=== PATIENT | female | born 1980 ===

== ENCOUNTER 2018-04-16 12:57 | Inpatient (IN) | payer MEDICAID ==
[2018-04-16 14:36] LABS: BASO % 0.3 % (0.0-2.0); EOS % 0.5 % (0.0-4.0); HEMOGLOBIN 12.9 g/dL (12.0-16.0); LYMPH # 2.1 K/uL (1.0-4.3); LYMPH % 23.3 % (20.0-40.0); MEAN CELL VOLUME 91.6 fl (81.0-99.0); MEAN CORPUSCULAR HEMOGLOBIN 31.7 pg (27.0-31.0); MEAN CORPUSCULAR HGB CONC 34.6 g/dL (33.0-37.0); MEAN PLATELET VOLUME 8.8 fl (7.2-11.7); MONO # 0.6 K/uL (0.0-0.8); MONO % 6.9 % (0.0-10.0); NEUT # 6.1 K/uL (1.8-7.0); NRBC % 0.1 % (0.0-0.0); RBC 4.05 Mil/uL (3.80-5.20); RED CELL DISTRIBUTION WIDTH 13.5 % (11.5-14.5); WHITE BLOOD COUNT 8.9 K/uL (4.8-10.8)
--- NOTE | 2018-04-16 14:40 | ED PDOC ---
HPI: Psych/Substance Abuse Time Seen by Provider: 04/16/18 13:30 Chief Complaint (Nursing): Psychiatric Evaluation Chief Complaint (Provider): psychiatric evaluation History Per: Patient History/Exam Limitations: no limitations Onset/Duration Of Symptoms: Days Current Symptoms Are (Timing): Still Present Additional Complaint(s): 38 year old female with a history of schizophrenia presents to the ED for a psychiatric evaluation. Patient states she was advised by her PMD for crisis evaluation. Patient is symptomatic. Her statements are rambling and disconnected. She has difficulty standing still and keeps moving. Also states she is sick and visited the ED a few days ago. Denies suicidal ideation and homicidal ideation. PMD: Dr. Sherri Kaiser Past Medical History Reviewed: Historical Data, Nursing Documentation, Vital Signs Vital Signs: Last Vital Signs Temp 98 F 04/16/18 13:10 Pulse 74 04/16/18 13:10 Resp 20 04/16/18 13:10 BP 127/78 04/16/18 13:10 Pulse Ox 98 04/16/18 13:10 - Medical History PMH: Schizophrenia - Family History Family History: States: Unknown Family Hx - Home Medications Home Medications: Ambulatory Orders Medication Instructions Recorded Escitalopram [Lexapro] 20 mg PO DAILY 04/16/18 FLUoxetine [Prozac] 10 mg PO DAILY 04/16/18 LORazepam [Ativan] 1 mg PO Q12 PRN 04/16/18 Olanzapine [Zyprexa] 15 mg PO HS 04/16/18 - Allergies Allergies/Adverse Reactions: Allergies Allergy/AdvReac Type Severity Reaction Status Date / Time No Known Allergies Allergy Verified 04/16/18 12:58 Review of Systems ROS Statement: Except As Marked, All Systems Reviewed And Found Negative Psych: Negative for: Suicidal ideation (homicidal ideation) Physical Exam - Reviewed Nursing Documentation Reviewed: Yes Vital Signs Reviewed: Yes - Physical Exam Appears: Positive for: Non-toxic, No Acute Distress Head Exam: Positive for: ATRAUMATIC, NORMAL INSPECTION, NORMOCEPHALIC Skin: Positive for: Normal Color, Warm, Dry Neurologic/Psych: Positive for: Alert, Oriented (x3). Negative for: Motor/ Sensory Deficits - Laboratory Results Result Diagrams: 04/16/18 14:25 04/16/18 14:25 Urine POC: Positive - ECG ECG: Positive for: Interpreted By Me ECG Rhythm: Positive for: Normal QRS, Normal ST Segment, Sinus Rhythm O2 Sat by Pulse Oximetry: 98 (RA) Pulse Ox Interpretation: Normal Medical Decision Making Medical Decision Making: Time: 1407 Initial impression: psychiatric evaluation Initial plan: --Acetaminophen --Alcohol Serum --CMP --Drug Screen, Urine --Salicylate --Crisis Evaluation --CBC w/ Differential --Urinalysis Pt admitted for schizophrenia underservice of Dr Rosado Scribe Attestation: Documented by Kwasi Ennis, acting as a scribe for Jose Marcano PA-C. Provider Scribe Attestation: All medical record entries made by the Scribe were at my direction and personally dictated by me. I have reviewed the chart and agree that the record accurately reflects my personal performance of the history, physical exam, medical decision making, and the department course for this patient. I have also personally directed, reviewed, and agree with the discharge instructions and disposition. Disposition - Clinical Impression Clinical Impression: as incidental finding, Schizophrenia - Patient ED Disposition Is Patient to be Admitted: Yes Discussed With : Dontrell Rosado Doctor Will See Patient In The: Hospital Counseled Patient/Family Regarding: Diagnosis - Disposition Disposition Time: 16:28 Condition: STABLE Instructions: Schizophrenia, Medications and Forms: Mirametrix (Yakut) - Pt Status Changed To: Hospital Disposition Of: Inpatient - Admit Certification Admit to Inpatient:: After my assessment, the patient will require hospitalization for at least two midnights. This is because of the severity of symptoms shown, intensity of services needed, and/or the medical risk in this patient being treated as an outpatient.
[2018-04-16 14:41] LABS: ALB/GLOB RATIO 1.4 (1.0-2.1); ALBUMIN 4.2 g/dL (3.5-5.0); ALT/SGPT 28 U/L (9-52); AST/SGOT 27 U/L (14-36); BLOOD UREA NITROGEN 7 mg/dl (7-17); CALCIUM 9.5 mg/dL (8.4-10.2); GFR AFRICAN-AMERICAN > 60; GFR NON-AFRICAN AMERICAN > 60
[2018-04-16 14:44] LABS: ACETAMINOPHEN < 10.0 ug/ml (10.0-30.0); SALICYLATE < 1.0 mg/dl
[2018-04-16 15:44] LABS: BARBITURATES, UR NEGATIVE (NEGATIVE); BENZODIAZEPINES, UR NEGATIVE (NEGATIVE); OPIATES, UR NEGATIVE (NEGATIVE); PHENCYCLIDINE, UR NEGATIVE (NEGATIVE)
[2018-04-16 15:57] LABS: URINE COLOR YELLOW (YELLOW)
[2018-04-16 15:58] LABS: URINE BILIRUBIN NEGATIVE (NEGATIVE); URINE BLOOD NEGATIVE (NEGATIVE); URINE CLARITY SLIGHT-CLOUDY (Clear); URINE GLUCOSE (UA) NEGATIVE (Normal); URINE PROTEIN NEGATIVE (NEGATIVE); URINE UROBILINOGEN 0.2 mg/dL (0.2-1.0)
[2018-04-16 15:59] LABS: SQUAMOUS EPITHIAL 1 /hpf (0-5); WBC CLUMPS RARE /hpf
[2018-04-16 16:01] LABS: URINE LEUKOCYTE ESTERASE NEGATIVE Leu/uL (Negative)
[2018-04-16] MEDS ORDERED: DiphenhydrAMINE 50 mg/ml Inj IM STA (16:17)
[2018-04-16] MEDS ORDERED: DiphenhydrAMINE 50 mg/ml Inj ONE (16:23)
[2018-04-16 21:04] VITALS: RESP 18; O2SAT 100
--- NOTE | 2018-04-16 22:26 | PCM.BM ---
Treatment Plan Problems - Problems identified on initial assessmt Altered Thought Process Date Initiated: 04/16/18 Time Initiated: 22:25 Assessment reference: NA Status: Active Treatment assets and liabiliti Patient Assests: ADL independent, negotiates basic needs, cognitively intact Patient Liabilities: poor support system, relationship conflicts - Milieu Protocol Maintain good personal hygiene: daily Encourage regular showers, daily Remind patient to perform daily oral care, daily Assist patient to perform ADL's Conduct patient checks and document Observation sheet: Q15 minutes Maintain personal safety: every shift Educate patient to report safety concerns to staff, every shift Monitor environment for contraband/sharps Medication safety: Monitor for expected outcome, potential side effects: every shift, Assess barriers to learning: every shift, Assess readiness for medication education: every shift
--- NOTE | 2018-04-16 23:51 | PCM.BM ---
<Melvin Bryant P - Last Filed: 04/16/18 23:50> Treatment Plan Problems - Problems identified on initial assessmt Auditory Hallucinations Date Initiated: 04/16/18 Time Initiated: 23:50 Assessment reference: NA Status: Active Visual Hallucinations Date Initiated: 04/16/18 Time Initiated: 23:50 Assessment reference: NA Status: Active Treatment assets and liabiliti Patient Assests: ADL independent, negotiates basic needs, cognitively intact Patient Liabilities: relationship conflicts, other - Milieu Protocol Maintain good personal hygiene: daily Encourage regular showers, daily Remind patient to perform daily oral care, daily Assist patient to perform ADL's Conduct patient checks and document Observation sheet: Q15 minutes Maintain personal safety: every shift Educate patient to report safety concerns to staff, every shift Monitor environment for contraband/sharps Medication safety: Monitor for expected outcome, potential side effects: every shift, Assess barriers to learning: every shift, Assess readiness for medication education: every shift <Joesph Ellis J - Last Filed: 04/18/18 16:32> Treatment Plan Problems - Problems identified on initial assessmt Auditory Hallucinations Date Initiated: 04/16/18 Time Initiated: 23:50 Assessment reference: NA Status: Active Visual Hallucinations Date Initiated: 04/16/18 Time Initiated: 23:50 Assessment reference: NA Status: Active Family Contact Family involvement: Family/SO is involved Family contact: Patient agrees to contact, Family has been contacted by patient , Telephone contact initiated by staff Family contact name: Kendall - Son Family contacted how many times per week?: 2 Family contact comment: As per pt's son, Kendall, he did not notice any change in pt's behavior at presnet time. Pt has only been home from boarding school in [place] for two weeks and reported that pt tends to be disorganized and tangential at baseline. Kendall does worry that his mother does not take her medications when he is away from school, but reported that she has been mostly compliant since he has been home. Kendall denied pt doing anything that concerned him recently and he was not aware that pt had decompensated. - Goals for Treatment Patient goals for treatment: Pt denied needing continued hospitalization and was discharged focus. Pt feels that she is being forced to stay in the hospital against her will and felt bullied into signing in. Pt feels that hospital staff lacks empathy for her and her sitaution as she is concerned that he daughter will not be cared for while she is hospitalized. Discharge/Continuing Care - Education Needs Education Needs: Family Medication, Family Diagnosis/Disease Process, Family Coping Skills, Family Aftercare Safety Plan, Patient Medication, Patient Diagnosis/Disease Process, Patient Coping Skills, Patient Aftercare Safety Plan - Discharge Discharge Criteria: Tolerates medication w/o severe side effects, Free of Homicidal thoughts, Free of paranoid thoughts, Ability to care for self, Reduction of target symptoms Discharge to:: Home, With Family - Treatment Team Participation Discussed with Family/SO: Yes <Cynthia Smith - Last Filed: 04/21/18 12:22> Treatment Plan Problems - Problems identified on initial assessmt Visual Hallucinations Assessment reference: Treatment assets and liabiliti Patient Assests: adapts well, resourceful, self-reliant, ADL independent, physically healthy Patient Liabilities: live alone (pt. resides with 10 year old daughter ; limited social supports ; poor family supports), poor support system, other ( inconsistant adherence with OPS ; hx of poor judgment/insight/impulse control when decompensated) Discharge/Continuing Care - Treatment Team Participation Patient/Family/SO Statement: 04/21/18 12:23 Pipe Insulator attended tx team this morning to discuss progress on 3NP and tx goals. Pt. continues to refuse medications on 3NP despite encouragement and recommendations from staff. Pt. has a 48 hour notice in affect and is adamant about not rescinding. Pt. has been screened and not accepted for involuntary commitment. However, pt. continues to minimize precursors to hospitalization and present with poor insight into illness and need for tx. Pt. presents with limited focused as evidence by need to have information repeated several times and difficulties understanding information provided. Pt. does deny SI/HI/AH/VH. Pt. presents as labile and somewhat internally preoccupied and guarded. Pt. easily irritable when discussing tx recommendations. Pt. expressed being unsure whether she wants to terminate current , stating I have a lot to figure out and do and need to leave and be with my children. Tx team emphasized importance of compliance with medication management to ensure safety in the community, reduce risk of future hospitalizations and improve insight/ judgment/impulse control. Pt. minimally receptive to feedback and remains discharge focused. Pt demanding discharge, stating that she can follow-up with outpatient providers independently. Pt. to be rescreened for involuntary hospitalization based on current refusal of medications, lability, impaired insight/judgment. Was Patient/Family/SO present at Treatment Team Meeting: Yes <Dontrell Rosado - Last Filed: 04/22/18 09:40> Treatment Plan Problems - Problems identified on initial assessmt Auditory Hallucinations Date Initiated: 04/16/18 Time Initiated: 23:50 Assessment reference: NA Status: Active Visual Hallucinations Date Initiated: 04/16/18 Time Initiated: 23:50 Assessment reference: SW Status: Active Altered Thought Process Date Initiated: 04/19/18 Time Initiated: 18:07 Assessment reference: NA Status: Active - Diagnosis (1) Depression Status: Acute Interventions: psychotherapy, pharmacotherapy 04/22/18 09:40
[2018-04-17 07:30] LABS: T4 9.7 ug/dl (5.5-11.0)
[2018-04-17] MEDS ORDERED: DiphenhydrAMINE 50 mg/ml Inj IM PRN (13:11)
[2018-04-17] MEDS ORDERED: Venlafaxine 37.5 mg ER Cap PO SCH (13:21)
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
--- NOTE | 2018-04-17 17:22 | CP.PCM.CON ---
History of Present Illness - History of Present Illness History of Present Illness: 38 yo female with history of psychoaffective DO admitted to psyche unit because of worsening depression after learning she is Review of Systems - Review of Systems All systems: reviewed and no additional remarkable complaints except (aside from those mentioned above, 12 point system review were negative by me) Past Patient History - Past Social History Smoking Status: Never Smoked Chewing Tobacco Use: No Cigar Use: No Alcohol: None Drugs: Denies - CARDIAC Hx Cardiac Disorders: No Hx Hypertension: No - PULMONARY Hx Respiratory Disorders: No Hx Tuberculosis: No - NEUROLOGICAL Hx Neurological Disorder: No HX Cerebrovascular Accident: No Hx Seizures: No - HEENT Hx HEENT Problems: No - RENAL Hx Chronic Kidney Disease: No - ENDOCRINE/METABOLIC Hx Endocrine Disorders: No - HEMATOLOGICAL/ONCOLOGICAL Hx Blood Disorders: No Hx Cancer: No Hx Human Immunodeficiency Virus (HIV): No - INTEGUMENTARY Hx Dermatological Problems: No - MUSCULOSKELETAL/RHEUMATOLOGICAL Hx Musculoskeletal Disorders: No - GASTROINTESTINAL Hx Gastrointestinal Disorders: No - GENITOURINARY/GYNECOLOGICAL Hx Genitourinary Disorders: No Hx Sexually Transmitted Disorders: No - PSYCHIATRIC Hx Schizophrenia: Yes Hx Substance Use: No (denies) - SURGICAL HISTORY Hx Surgeries: No - ANESTHESIA Hx Anesthesia: No Meds Allergies/Adverse Reactions: Allergies Allergy/AdvReac Type Severity Reaction Status Date / Time No Known Allergies Allergy Verified 04/16/18 12:58 - Medications Medications: Current Medications Acetaminophen (Tylenol 325mg Tab) 325 mg PO Q6 PRN PRN Reason: Pain, moderate (4-7) Last Admin: 04/17/18 16:23 Dose: 325 mg Diphenhydramine HCl (Benadryl) 50 mg IM Q6 PRN PRN Reason: Extrapyramidal S/S Unable PO Diphenhydramine HCl (Benadryl) 50 mg PO Q6 PRN PRN Reason: Extrapyramidal Symptoms Diphenhydramine HCl (Benadryl) 50 mg PO HS PRN PRN Reason: Sleep Diphenhydramine HCl (Benadryl) 50 mg IM Q6 PRN PRN Reason: Extrapyramidal S/S Unable PO Haloperidol (Haldol) 5 mg PO Q4 PRN PRN Reason: Agitation Haloperidol (Haldol) 2 mg PO TID JASVIR Last Admin: 04/17/18 16:27 Dose: 2 mg Haloperidol Lactate (Haldol) 5 mg IM Q4 PRN PRN Reason: Agitation, Unable to Take PO Physical Exam - Constitutional Appears: No Acute Distress - Head Exam Head Exam: ATRAUMATIC - Eye Exam Eye Exam: absent: Scleral icterus - ENT Exam ENT Exam: Mucous Membranes Moist - Neck Exam Neck exam: Negative for: Meningismus - Respiratory Exam Respiratory Exam: absent: Rales, Rhonchi, Wheezes, Respiratory Distress - Cardiovascular Exam Cardiovascular Exam: REGULAR RHYTHM, +S1, +S2 - GI/Abdominal Exam GI & Abdominal Exam: Soft. absent: Tenderness - Rectal Exam Rectal Exam: Deferred - Extremities Exam Extremities exam: Negative for: calf tenderness, pedal edema - Back Exam Back exam: NORMAL INSPECTION - Neurological Exam Neurological exam: Alert, Oriented x3 - Psychiatric Exam Psychiatric exam: Normal Affect - Skin Skin Exam: Dry, Intact Results - Vital Signs Recent Vital Signs: Last Vital Signs Temp 98.3 F 04/17/18 16:23 Pulse 82 04/17/18 09:00 Resp 18 04/17/18 09:00 BP 102/61 04/17/18 09:00 Pulse Ox 100 04/16/18 21:02 - Labs Result Diagrams: 04/16/18 14:25 04/16/18 14:25 Labs: Laboratory Results - last 24 hr 04/17/18 04/17/18 06:40 06:40 Hemoglobin A1c 5.3 Triglycerides 64 Cholesterol 171 LDL Cholesterol Direct 73 HDL Cholesterol 55 Thyroxine (T4) 9.70 TSH 3rd Generation 0.76 Assessment & Plan (1) Depression Status: Acute Comment: psyche is managing (2) as incidental finding Status: Acute Comment: OB-NOTCHED BLADE LOADER on consult. patient is planning to terminate
--- NOTE | 2018-04-18 11:14 | CARD ---
APPROVED REPORT EKG Measurement Heart [id number] <Conclusion> Normal sinus rhythm Normal ECG
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
--- NOTE | 2018-04-18 20:40 | CP.PCM.CON ---
<Cristian Ahn - Last Filed: 04/18/18 20:40> History of Present Illness - History of Present Illness History of Present Illness: 38 yo F EGA 8.2 based on LMP 02/19/2018 was admitted for schizoaffective disorder. She denies: vaginal bleeding, contractions, loss of fluid, or movement. ROS: Denies: dizziness, blurred vision, chest pain, shortness of breath, nausea , vomiting, or dysuria OB: She denies establishing care. She reports scheduling an appointment on 04/29/2018 in [facility] for termination of . ObHX: 2000 Male FT denies complications; 2007 Female FT denies complications Gyne hx: Menses began at age 11, monthly 28 day cycles, lasting 3 days, requiring 5 pads per day Pmhx: Schizophrenia dx in DR at age 7 Famhx: none Soc: Denies smoking, alcohol, illicit drugs or hx of STIs Surg: none NKDA Meds: Lexapro, Ativan, Resperidol Gen: AAOx3, no acute distress Cardiac: S1S2 no murmurs Lungs: CTA bilaterally, no wheezing Abdo: Soft nontender, active bowel sounds, fundus not palpable CVA: non tender Calves: non tender Ambulates without difficulty, no abnormal gait observed 38 yo F IUP EGA 8.2 based on LMP -Continue management per Psychiatry -No care; no symptoms of VB, LOF, CTX, FM -Recommend starting vitamins -Recommend Transvaginal Ultrasound in the AM for dating -Pt states desire for termination of and reports scheduled on 2017 -ER precautions reviewed with patient -Cleared by OB for discharge Case d/w Dr. Marco A Ahn MD PGY1 Past Patient History - Past Social History Smoking Status: Never Smoked Chewing Tobacco Use: No Cigar Use: No Alcohol: None Drugs: Denies - CARDIAC Hx Cardiac Disorders: No Hx Hypertension: No - PULMONARY Hx Respiratory Disorders: No Hx Tuberculosis: No - NEUROLOGICAL Hx Neurological Disorder: No HX Cerebrovascular Accident: No Hx Seizures: No - HEENT Hx HEENT Problems: No - RENAL Hx Chronic Kidney Disease: No - ENDOCRINE/METABOLIC Hx Endocrine Disorders: No - HEMATOLOGICAL/ONCOLOGICAL Hx Blood Disorders: No Hx Cancer: No Hx Human Immunodeficiency Virus (HIV): No - INTEGUMENTARY Hx Dermatological Problems: No - MUSCULOSKELETAL/RHEUMATOLOGICAL Hx Musculoskeletal Disorders: No - GASTROINTESTINAL Hx Gastrointestinal Disorders: No - GENITOURINARY/GYNECOLOGICAL Hx Genitourinary Disorders: No Hx Sexually Transmitted Disorders: No - PSYCHIATRIC Hx Schizophrenia: Yes Hx Substance Use: No (denies) - SURGICAL HISTORY Hx Surgeries: No - ANESTHESIA Hx Anesthesia: No Meds Allergies/Adverse Reactions: Allergies Allergy/AdvReac Type Severity Reaction Status Date / Time No Known Allergies Allergy Verified 04/16/18 12:58 - Medications Medications: Current Medications Acetaminophen (Tylenol 325mg Tab) 325 mg PO Q6 PRN PRN Reason: Pain, moderate (4-7) Last Admin: 04/17/18 21:48 Dose: 325 mg Diphenhydramine HCl (Benadryl) 50 mg IM Q6 PRN PRN Reason: Extrapyramidal S/S Unable PO Diphenhydramine HCl (Benadryl) 50 mg PO Q6 PRN PRN Reason: Extrapyramidal Symptoms Diphenhydramine HCl (Benadryl) 50 mg PO HS PRN PRN Reason: Sleep Diphenhydramine HCl (Benadryl) 50 mg IM Q6 PRN PRN Reason: Extrapyramidal S/S Unable PO Haloperidol (Haldol) 5 mg PO Q4 PRN PRN Reason: Agitation Haloperidol (Haldol) 2 mg PO TID JASVIR Last Admin: 04/18/18 16:43 Dose: 2 mg Haloperidol Lactate (Haldol) 5 mg IM Q4 PRN PRN Reason: Agitation, Unable to Take PO Results - Vital Signs Recent Vital Signs: Last Vital Signs Temp 97.2 F L 04/18/18 17:00 Pulse 85 04/18/18 17:00 Resp 18 04/18/18 17:00 BP 129/66 04/18/18 17:00 Pulse Ox 100 04/16/18 21:02 - Labs Result Diagrams: 04/16/18 14:25 04/16/18 14:25 Labs: Laboratory Results - last 24 hr 04/17/18 06:40 RPR Nonreactive <Edmond Strickland - Last Filed: 04/19/18 08:18> Meds - Medications Medications: Current Medications Acetaminophen (Tylenol 325mg Tab) 325 mg PO Q6 PRN PRN Reason: Pain, moderate (4-7) Last Admin: 04/17/18 21:48 Dose: 325 mg Diphenhydramine HCl (Benadryl) 50 mg IM Q6 PRN PRN Reason: Extrapyramidal S/S Unable PO Diphenhydramine HCl (Benadryl) 50 mg PO Q6 PRN PRN Reason: Extrapyramidal Symptoms Diphenhydramine HCl (Benadryl) 50 mg PO HS PRN PRN Reason: Sleep Diphenhydramine HCl (Benadryl) 50 mg IM Q6 PRN PRN Reason: Extrapyramidal S/S Unable PO Haloperidol (Haldol) 5 mg PO Q4 PRN PRN Reason: Agitation Haloperidol (Haldol) 2 mg PO TID JASVIR Last Admin: 04/18/18 16:43 Dose: 2 mg Haloperidol Lactate (Haldol) 5 mg IM Q4 PRN PRN Reason: Agitation, Unable to Take PO Multivit/Folic Acid/Iron () 1 tab PO DAILY JASVIR Results - Vital Signs Recent Vital Signs: Last Vital Signs Temp 97.2 F L 04/18/18 17:00 Pulse 85 04/18/18 17:00 Resp 18 04/18/18 17:00 BP 129/66 04/18/18 17:00 Pulse Ox 100 04/16/18 21:02 - Labs Result Diagrams: 04/16/18 14:25 04/16/18 14:25 Assessment & Plan - Assessment and Plan (Free Text) Plan: OB Hospitalist on-call...On rounds, i saw this patient with Dr Ahn PGY1. She does not want anything done. Offered sono for dating and vitamins. She declined this morning. She plans on TOP (termination of preg) - OB service signs off...re-consult of needed MAHNDO
[2018-04-19] MEDS: Prenatal Multivit/Folic Acid/Iron Tab PO SCH (09:06)
[2018-04-19] MEDS: DiphenhydrAMINE 50 mg/ml Inj IM PRN ×2 (09:35→18:45)
--- NOTE | 2018-04-19 09:51 | PCM.PYCHPN ---
Psychiatric Progress Note - Psychiatric Progress Note Patient seen today, length of contact: Patient evaluated, case discussed w/ team , chart reviewed Patient Chief Complaint: "I want to leave." Problems Identified/Issues Discussed: Patient is requesting to leave the hospital and signed a 48 hour letter. She had oromandibular dystonia and was given IM Benadryl. She states she does not want to continue taking Haldol due to this reaction. She is linear, coherent and goal oriented on conversation. She denies acute concerns about aliens and states that she watches shows about aliens on TV, but denies ideation that aliens are coming to harm anyone. She denies acute AH/VH/SI/HI. We discussed starting treatment w/ a different antipsychotic such as Abilify, but she is not certain if she wants to take any other medications. Medication Change: Yes (Stop Haldol) Medical Record Reviewed: Yes Consults ordered or reviewed: Medicine consult, OB consult Mental Status Examination - Cognitive Function Orientation: Person, Place, Situation, Time Memory: Intact Attention: WNL Concentration: WNL Association: WNL Fund of Knowledge: WN Decription of patient's judgement and insights: Poor I/J - Mood Mood: Neutral - Affect Affect: Broad - Speech Speech: Appropriate - Formal Thought Process Formal Thought Process: Delusions, Loosening of associations Psychotic Thoughts and Behaviors: +Patient seems less delusional about aliens; denies acute AH/VH/paranoia - Suicidal Ideation Suicidal Ideation: No - Homicidal Ideation Homicidal Ideation: No Goal/Treatment Plan - Goal/Treatment Plan Need for Continued Stay: Remain at risks for inpatient hospitalization, Discharge may exacerbated symptoms, Severe functional impairment Progress Toward Problem(s) and Goals/Treatment Plan: Schizoaffective Disorder -Stop Haldol, patient is not agreeable to taking it after having a dystonic reaction; will treat with Benadryl and Cogentin as needed -Screen for involuntary admission -Continue to discuss other medications with the patient, such as treatment with Abilify -OB consult appreciated; patient intends to terminate the -Individual and group therapy -Psychoeducation -SW to call DCP&P re: safety of her children -Medicine consult -Disposition planning Estimated Date of D/C: 04/21/18
--- NOTE | 2018-04-19 18:05 | PCM.BM ---
Treatment Plan Problems - Problems identified on initial assessmt Altered Thought Process Date Initiated: 04/19/18 Time Initiated: 18:07 Assessment reference: NA Status: Active Auditory Hallucinations Date Initiated: 04/16/18 Time Initiated: 23:50 Assessment reference: NA Status: Active Visual Hallucinations Date Initiated: 04/16/18 Time Initiated: 23:50 Assessment reference: NA Status: Active Treatment assets and liabiliti Patient Assests: ADL independent, negotiates basic needs, cognitively intact Patient Liabilities: relationship conflicts, other - Milieu Protocol Maintain good personal hygiene: daily Encourage regular showers, daily Remind patient to perform daily oral care, daily Assist patient to perform ADL's Conduct patient checks and document Observation sheet: Q15 minutes Maintain personal safety: every shift Educate patient to report safety concerns to staff, every shift Monitor environment for contraband/sharps Medication safety: Monitor for expected outcome, potential side effects: every shift, Assess barriers to learning: every shift, Assess readiness for medication education: every shift Milieu Narrative: Schizoaffective Disorder -Stop Haldol, patient is not agreeable to taking it after having a dystonic reaction; will treat with Benadryl and Cogentin as needed -Screen for involuntary admission -Continue to discuss other medications with the patient, such as treatment with Abilify -OB consult appreciated; patient intends to terminate the -Individual and group therapy -Psychoeducation -SW to call DCP&P re: safety of her children -Medicine consult -Disposition planning Family Contact Family involvement: Family/SO is involved Family contact: Patient agrees to contact, Family has been contacted by patient , Telephone contact initiated by staff Family contact name: Kendall - Son Family contacted how many times per week?: 2 Family contact comment: As per pt's son, Kendall, he did not notice any change in pt's behavior at presnet time. Pt has only been home from boarding school in [place] for two weeks and reported that pt tends to be disorganized and tangential at baseline. Kendall does worry that his mother does not take her medications when he is away from school, but reported that she has been mostly compliant since he has been home. Kendall denied pt doing anything that concerned him recently and he was not aware that pt had decompensated. - Goals for Treatment Patient goals for treatment: Pt denied needing continued hospitalization and was discharged focus. Pt feels that she is being forced to stay in the hospital against her will and felt bullied into signing in. Pt feels that hospital staff lacks empathy for her and her sitaution as she is concerned that he daughter will not be cared for while she is hospitalized. Discharge/Continuing Care - Education Needs Education Needs: Family Medication, Family Diagnosis/Disease Process, Family Coping Skills, Family Aftercare Safety Plan, Patient Medication, Patient Diagnosis/Disease Process, Patient Coping Skills, Patient Aftercare Safety Plan - Discharge Discharge Criteria: Tolerates medication w/o severe side effects, Free of Homicidal thoughts, Free of paranoid thoughts, Ability to care for self, Reduction of target symptoms Discharge to:: Home, With Family - Treatment Team Participation Patient/Family/SO Statement: Schizoaffective Disorder -Stop Haldol, patient is not agreeable to taking it after having a dystonic reaction; will treat with Benadryl and Cogentin as needed -Screen for involuntary admission -Continue to discuss other medications with the patient, such as treatment with Abilify -OB consult appreciated; patient intends to terminate the -Individual and group therapy -Psychoeducation -SW to call DCP&P re: safety of her children -Medicine consult -Disposition planning Discussed with Family/SO: Yes
--- NOTE | 2018-04-20 12:08 | PCM.PYCHPN ---
Psychiatric Progress Note - Psychiatric Progress Note Patient seen today, length of contact: Patient evaluated, case discussed w/ team , chart reviewed Patient Chief Complaint: "I want to leave." Problems Identified/Issues Discussed: Patient was screened for involuntary psychiatric admission and was found to not meet criteria for involuntary commitment. She continues to want to leave. Boilermaker Helper informed patient she will be discharged tomorrow and that she would benefit from continued outpatient psychiatric treatment. She is currently refusing all psychiatric medications. She will continue follow-up with her primary psychiatrist, Dr. Kaiser. She is linear and organized on conversation w /o pressured speech. Denies AH/VH/paranoia/delusions. Medication Change: Yes (PRN Benadryl; pt does not want to take any psychiatric medications) Medical Record Reviewed: Yes Consults ordered or reviewed: Medicine consult, OB consult Mental Status Examination - Cognitive Function Orientation: Person, Place, Situation, Time Memory: Intact Attention: WNL Concentration: WNL Association: WNL Fund of Knowledge: WNL Decription of patient's judgement and insights: Poor I/J - Mood Mood: Neutral - Affect Affect: Broad - Speech Speech: Appropriate - Formal Thought Process Formal Thought Process: No Impairment Psychotic Thoughts and Behaviors: Denies acute AH/VH/paranoia/delusions - Suicidal Ideation Suicidal Ideation: No - Homicidal Ideation Homicidal Ideation: No Goal/Treatment Plan - Goal/Treatment Plan Need for Continued Stay: Discharge may exacerbated symptoms Progress Toward Problem(s) and Goals/Treatment Plan: Schizoaffective Disorder -Patient screened for involuntary psychiatric admission and not accepted -She is refusing all psychiatric medications at this time -Will given Benadryl PRN dystonic reaction, she prefers to take Benadryl instead of Cogentin -Will arrange outpatient psychiatric follow-up tomorrow -Medicine and OB consults appreciated -Disposition- Discharge tomorrow Estimated Date of D/C: 04/21/18
[2018-04-20] MEDS: Prenatal Multivit/Folic Acid/Iron Tab PO SCH (17:12)
[2018-04-21] MEDS: Prenatal Multivit/Folic Acid/Iron Tab PO SCH (09:32)
--- NOTE | 2018-04-21 11:10 | PCM.PYCHPN ---
Psychiatric Progress Note - Psychiatric Progress Note Patient seen today, length of contact: Patient evaluated, case discussed w/ team , chart reviewed Patient Chief Complaint: I will take care of myself Problems Identified/Issues Discussed: pt evaluated with treatment team, pt anxious and irritable, requesting to be discharged, pt refusing to continue with the haldol , pt understands this is the only safe medication with the fact that she is , pt verbalized being still confused and not sure if she would go ahead with the termination or keep the fetus pt presenting with labile angry and irritable affect , continues to be guarded internally preoccupied pt at current mental status is unable to care for self or for her 10years old child Medical Problems: multiple inpatient hospitalizations, since age 7, hx of non compliance with treatment DSM 5 Symptoms Update: schizoaffective disorder bipolar Medication Change: Yes (PRN Benadryl; pt does not want to take any psychiatric medications) Medical Record Reviewed: Yes Mental Status Examination - Cognitive Function Orientation: Person, Place, Situation, Time Memory: Intact Attention: WNL Concentration: WNL Association: WNL Fund of Knowledge: [facility] Decription of patient's judgement and insights: poor insight and judgment - Mood Mood: Anxious - Affect Affect: Constricted Additional comments: irritable - Speech Speech: Loud - Formal Thought Process Formal Thought Process: Delusions, Circumstantial Psychotic Thoughts and Behaviors: pt continues to have delusions about aliens and internally preoccupied - Suicidal Ideation Suicidal Ideation: No - Homicidal Ideation Homicidal Ideation: No Goal/Treatment Plan - Goal/Treatment Plan Need for Continued Stay: Discharge may exacerbated symptoms Progress Toward Problem(s) and Goals/Treatment Plan: pt refusing medications, requesting to be discharged, presenting with labile affect , guarded but as conversation proceeds, continues to have delusional thought process internally preoccupied , pt at current mental status not able to care for self or her 10ys old child pt will be referred for rescreening for medication stabilization Estimated Date of D/C: 04/21/18
[2018-04-21 17:40] VITALS: BP 105/72; PULSE 74; TEMP 97.1
[2018-04-22] MEDS: Prenatal Multivit/Folic Acid/Iron Tab PO SCH (08:32)
--- NOTE | 2018-04-22 14:52 | PCM.PSYCH ---
Initial Psychiatric Evaluation - Initial Psychiatric Evaluation Type of Admission: Voluntary Legal Status: Capacity History of Present Illness and Precipitating Events: Converting Technician spoke with the patients therapist from [facility], Margaret Bosch, for collateral information from [facility]. Pt has been with the program for 6-7 years. Pt is currently diagnosed with Schizoaffective D/O Bipolar Type. Pt informed her that someone put a device in her head last night and she can feel it because it is so painful. Pt was screaming and crying during her visit today. Pt stated that she is but has not provided any doctor information about her , but stated that she will be getting an on the . According to Margaret, the patient has a boyfriend but they broke up 2 months ago. The patient has a 10 and 18 year old son. Pt is currently prescribed Zyprexa, Lexapro, Prozac, and Ativan, but has been non- compliant with her medication. Current Medications: Active Medications Generic Name Dose Route Start Last Admin Trade Name Freq PRN Reason Stop Dose Admin Acetaminophen 325 mg 04/17/18 13:11 Tylenol 325mg Tab PO Q6 PRN Pain, moderate (4-7) Diphenhydramine HCl 50 mg 04/16/18 21:01 Benadryl IM Q6 PRN Extrapyramidal S/S Unable PO Diphenhydramine HCl 50 mg 04/16/18 21:01 Benadryl PO Q6 PRN Extrapyramidal Symptoms Diphenhydramine HCl 50 mg 04/16/18 21:02 Benadryl PO HS PRN Sleep Diphenhydramine HCl 50 mg 04/17/18 13:11 Benadryl IM Q6 PRN Extrapyramidal S/S Unable PO Haloperidol 5 mg 04/17/18 13:11 Haldol PO Q4 PRN Agitation Haloperidol Lactate 5 mg 04/17/18 13:11 Haldol IM Q4 PRN Agitation, Unable to Take PO Olanzapine 10 mg 04/17/18 22:00 Zyprexa PO HS JASVIR Olanzapine 2.5 mg 04/17/18 13:15 Zyprexa PO DAILY JASVIR Venlafaxine HCl 37.5 mg 04/17/18 13:21 Effexor Xr PO DAILY JASVIR Past Psychiatric History - Past Psychiatric History Pertinent Medical Hx (Current Medical&Sleep Prob, Allergies): Allergies Allergy/AdvReac Type Severity Reaction Status Date / Time No Known Allergies Allergy Verified 04/16/18 12:58 Escitalopram [Lexapro] 20 mg PO DAILY 04/16/18 FLUoxetine [Prozac] 10 mg PO DAILY 04/16/18 LORazepam [Ativan] 1 mg PO Q12 PRN 04/16/18 Olanzapine [Zyprexa] 15 mg PO HS 04/16/18
--- NOTE | 2018-04-22 15:10 | PCM.PYCHDC ---
Mental Status Examination - Mental Status Examination Orientation: Person, Place, Situation Memory: Intact Mood: Neutral Affect: Broad Speech: Appropriate Attention: WNL Concentration: WNL Association: WNL Fund of Knowledge: WNL Formal Thought Process: Circumstantial Description of patient's judgement and insight: fair insight and judgment Psychotic Thoughts and Behaviors: pt on discharge denied psychotic symptoms, non elicited Suicidal Ideation: No Current Homicidal Ideation?: No Discharge Summary - Discharge Note Reason for Hospitalization: pt is 38ys old female with previous psychiatric diagnosis of schizoaffective disorder bipolar type, pt has not been compliant with medications recently, as she has been stressed when she came to know she is , pt stated that the resulted from an impulsive episode when she was manic and sexually preoccupied, currently she is feeling very sad and remorseful as she already scheduled to terminate the on 04/29 pt reported she started to feel more depressed, stopped taking her medications, became increasingly psychotic , on day of evaluation she expressed disorganized thoughts to her therapist including that she has headaches because aliens implanted device in her head, pt was sent to ER for evaluation on the unit pt continues to have disorganized thought process reporting she has connections with aliens and ghosts, spirtual connection with furniture, presenting with thought blocking and internally preoccupied . labile affect at time tearful and then irritable then laughing pt denied command hallucinations, denied suicidal or homicidal ideation pt Balance Truer spoke with the patients therapist from [facility], Mragaret Bosch, for collateral information from [facility]. Pt has been with the program for 6-7 years. Pt is currently diagnosed with Schizoaffective D/O Bipolar Type. Pt informed her that someone put a device in her head last night and she can feel it because it is so painful. Pt was screaming and crying during her visit today. Pt stated that she is but has not provided any doctor information about her , but stated that she will be getting an on the . According to Margaret, the patient has a boyfriend but they broke up 2 months ago. The patient has a 10 and 18 year old son. Pt is currently prescribed Zyprexa, Lexapro, Prozac, and Ativan, but has been non- compliant with her medication. Consultations:: List each consultation separately and include: 1. Reason for request. 2. Findings. 3. Follow-up Summary of Hospital Course include:: 1. Description of specific treatment plan utilized for patients during their course of treatmen. 2. Summarize the time- course for resolution of acute symptoms and/or regressed behaviors. 3. Describe issues identified and worked on during hospitalization. 4. Describe medication utilized. 5. Describe medical problems identified and treated. 6. Reassessment of suicide risk Summary of Hospital Course: pt on admission presented with delusional thought process, seeing aliens and having spiritual connection with furniture, pt was non compliant with her medications for at least a week, pt pt at current time two months however she has a scheduled elective on 04/29 discussed with pt risks versus benefits of being started on medications, pt understands the risk of being on medications with possible teratogenic effect pt at current mental status does have capacity to make decision in reference of being started on medications as pt understood and was able to verbalize risk versus benefits , pt is clear about the decision to terminate the discussed with pt that she will be started on haldol as the current evidence base known to be safest in pt agreed will start haldol 2mg tid , pt developed orofacial dyskinesia, haldol was reduced to 1mg bid with cogentin, 1mg bid pt declined to continue with treatment signed 48hours notice for discharge, pt was referred to [facility] for screening for involuntary admission for continuity of care patient however was declined for involuntary admission twice division of child protection was contacted by social media developer and was made aware of pt discharge plan on discharge pt mental status was stable, denied any current suicidal or homicidal ideation denied command hallucinations, follow up arranged at [facility] outpatient - Diagnosis (1) Depression Status: Acute - Final Diagnosis (DSM 5) Condition upon Discharge: STABLE DSM 5: schizoaffective disorder bipolar type Disposition: HOME/ ROUTINE Follow-up Treatment Plan: pt refusing medications, requesting to be discharged, presenting with labile affect , guarded but as conversation proceeds, continues to have delusional thought process internally preoccupied , pt at current mental status not able to care for self or her 10ys old child pt will be referred for rescreening for medication stabilization Prescriptions/Medication Reconciliation: Benztropine [Cogentin] 1 mg PO BID 15 Days #30 tab Haloperidol [Haldol] 1 mg PO BID 15 Days #30 tab Multivit/Folic Acid/I [] 1 tab PO DAILY 30 Days #30 tab - Antipsychotic Medications Pt discharged on 2 or more routine antipsychotic medications: No
== END 2018-04-22 13:42 | disposition home or self-care (01) | DRG 886 ==
LOC: H.ER 12:57 → H.ERHOLD 16:56 → H.PSYCH 20:53
PROVIDERS: ADMIT Psychiatry & Neurology Psychiatry; ATTEND Psychiatry & Neurology Psychiatry
PROC: GZHZZZZ Group Psychotherapy (ICD-10-PCS; principal; 2018-04-16)
DX: O99.341 Other mental disorders complicating pregnancy, first trimester (principal); F25.0 Schizoaffective disorder, bipolar type; Z3A.08 8 weeks gestation of pregnancy; Z91.14 Patient's other noncompliance with medication regimen; G24.01 Drug induced subacute dyskinesia; T43.4X5A Adverse effect of butyrophenone and thiothixene neuroleptics, initial encounter